=== PATIENT | female | born 1930 | race Hispanic/Latino ===

== ENCOUNTER 2017-09-10 09:54 | Outpatient (CLI) | payer MEDICARE, MEDICAID ==
[2017-09-10] MEDS ORDERED: Iopamidol 370 76% 100 ML VIAL ONE (12:58)
--- NOTE | 2017-09-10 13:16 | CT ---
CONTRAST ENHANCED CT IMAGES CHEST: DATE: 09/10/17. COMPARISON: Comparison is made to previous exam from 08/28/16. FINDINGS: Contrast-enhanced CT images of the chest are obtained. The patient has had a previous left lower lobectomy. The previously noted left lower lobe thrombus i n the pulmonary artery has resolved. The patient has an anatomic variant with a single common origin of the right coronary artery, left ci rcumflex, and left anterior descending artery all originating apparently from a calcified vessel in t he right coronary cusp. A left coronary arterial origin is not visible off of the left coronary cusp . There are extensive calcifications in the right coronary artery, LAD, and circumflex vessels. There is marked calcification over the mitral annulus. A spiculated lesion seen in the left upper lobe is not significantly changed since the previous sera rison CT. The right lung is unremarkable. No definite evidence of mediastinal masses or lesions seen. There is a cyst in the upper pole of the right kidney. An additional cyst is also seen in the right and left hepatic lobes. IMPRESSION: Stable CT appearance of the chest. POS: [facility]
== END 2017-09-10 09:55 | disposition home or self-care (01) ==
LOC: CT 09:54
PROVIDERS: ATTEND Internal Medicine Pulmonary Disease
DX: R91.1 Solitary pulmonary nodule (principal)
CPT/HCPCS: 71260; 82565

== ENCOUNTER 2017-10-03 08:17 | Emergency (ER) | payer MEDICARE, MEDICAID ==
[2017-10-03 08:44] LABS: #Eosinphils 0.2 thou/uL (0.0-0.7); #Lymphocytes 1.4 thou/uL (1.20-3.40); #Monocytes 0.4 thou/uL (0.11-0.59); #Neutrophils 5.1 thou/uL (1.40-6.50); %Basophils 0.4 % (0.0-1.0); %Eosinophils 2.2 % (0.0-10.0); %Lymphocytes 19.3 % (21.0-51.0); %Monocytes 5.9 % (0.0-10.0); %Neutrophils 72.2 % (42.0-75.0); Hemoglobin 12.6 g/dL (12.0-16.0); Mean Corpuscular HGB CONC 31.9 g/dL (32.0-36.0); Mean Corpuscular Hemoglobin 29.5 pg (27.0-31.0); Mean Corpuscular Volume 92.5 fl (81.0-99.0); Mean Platelet Volume 6.8 fL (7.4-10.4); Platelet Count 269 thou/uL (130-400); RBC Distribution Width 12.5 % (11.5-14.5); Red Blood Cell (RBC) Count 4.28 mill/uL (4.20-5.40)
[2017-10-03 08:54] LABS: INR-International Normal Ratio 1.1; PTT 32.5 SEC (22.9-36.1); Prothrombin Time 13.8 SEC (12.0-14.7)
--- NOTE | 2017-10-03 09:14 | RAD ---
PORTABLE CHEST ONE VIEW: 10/03/2017 8:32 a.m. HISTORY: Altered mental status. COMPARISON: 03/05/2017 FINDINGS: Continued blunting of the left costophrenic angle, likely due to scarring, is again seen. The heart size is stable. The aorta is tortuous. No focal areas of consolidation, pneumothoraces, or pleural effusions are seen. IMPRESSION: No radiographic evidence of acute cardiopulmonary process. POS: [facility]
[2017-10-03 09:16] LABS: ALT (SGPT) 9 U/L (8-55); AST (SGOT) 17 U/L (5-34); Albumin 3.5 g/dL (3.4-4.8); Alkaline Phosphatase 82 U/L (40-150); Anion Gap 11 mmol/L (10-20); BUN (Urea Nitrogen) 13 mg/dL (9.8-20.1); Bilirubin, Total 0.4 mg/dL (0.2-1.2); CK (CPK) 53 U/L (29-168); Calc. Creatinine Clearance 0 mL/min (70-130); Carbon Dioxide 26 mmol/L (23-31); Chloride 109 mmol/L (98-107); Estimated GFR-MDRD 82; Globulin 3.3 g/dL (2.4-3.5); Glucose 100 mg/dL (83-110); Potassium 3.8 mmol/L (3.5-5.1); Protein, Total 6.8 g/dL (6.0-8.3); Sodium 142 mmol/L (136-145)
[2017-10-03 09:21] LABS: CKMB 0.9 ng/mL (0-6.6); Troponin I Less than 0.010 ng/mL (< 0.028)
--- NOTE | 2017-10-03 09:50 | CT ---
HEAD CT NONCONTRAST: Date: 10/03/17 COMPARISON: 03/20/16. INDICATION: Headache. FINDINGS: There is left frontal lobe encephalomalacia with compensatory dilatation of the ventricular system. P arenchymal atrophy and chronic microvascular ischemic disease are present. There is no acute intracra nial hemorrhage, mass effect, or midline shift. Multifocal extra-axial calcifications are redemonstra lorenzo. There is scattered paranasal sinus opacification with redemonstration of expanded sella. IMPRESSION: 1. No acute intracranial abnormality. 2. Additional findings are detailed above. POS: [facility]
[2017-10-03] MEDS ORDERED: levETIRAcetam 500 MG TAB PO SCH (10:00)
== END 2017-10-03 10:58 | disposition home or self-care (01) ==
LOC: ERS 08:17
DX: R56.9 Unspecified convulsions (principal); E78.5 Hyperlipidemia, unspecified; I10 Essential (primary) hypertension; Z87.891 Personal history of nicotine dependence; Z86.73 Personal history of transient ischemic attack (TIA), and cerebral infarction without residual deficits; Z79.899 Other long term (current) drug therapy
CPT/HCPCS: 70450; 71045; 80053; 82550; 82553; 83880; 84146; 84484; 85025; 85610; 85730; 93005

== ENCOUNTER 2017-11-19 11:31 | Observation (INO) | payer MEDICARE, MEDICAID ==
--- NOTE | 2017-11-19 12:04 | CT ---
CT BRAIN WITHOUT CONTRAST: HISTORY: Stroke protocol. Paralysis on the right. Slurred speech. COMPARISON: CT brain 10/03/17. FINDINGS: Old left IVETTE territory infarction with encephalomalacia. There is some gliosis along the left occipi gin lobe, unchanged. No acute hemorrhage. No midline shift or mass effect. No evidence of a new acute infarction. Possible old calcified subdural hematoma. No hematoma is present on this exam with only some subdura l calcifications. Paranasal sinuses and mastoids are clear. IMPRESSION: Chronic findings. No acute intracranial abnormality. Dr. Cody at 11:46 a.m. CODE CR POS: [facility]
[2017-11-19 12:36] LABS: #Eosinphils 0.1 thou/uL (0.0-0.7); #Lymphocytes 1.3 thou/uL (1.20-3.40); #Monocytes 0.5 thou/uL (0.11-0.59); #Neutrophils 4.7 thou/uL (1.40-6.50); %Basophils 0.7 % (0.0-1.0); %Eosinophils 2.1 % (0.0-10.0); %Lymphocytes 18.9 % (21.0-51.0); %Monocytes 7.1 % (0.0-10.0); %Neutrophils 71.2 % (42.0-75.0); Hemoglobin 11.7 g/dL (12.0-16.0); Mean Corpuscular HGB CONC 33.7 g/dL (32.0-36.0); Mean Corpuscular Hemoglobin 30.8 pg (27.0-31.0); Mean Corpuscular Volume 91.5 fL (78.0-98.0); Mean Platelet Volume 6.6 fL (7.4-10.4); Platelet Count 249 thou/uL (130-400); RBC Distribution Width 12.4 % (11.5-14.5); Red Blood Cell (RBC) Count 3.79 mill/uL (4.20-5.40); White Blood Cell (WBC) Count 6.6 thou/uL (4.8-10.8)
[2017-11-19 12:44] LABS: INR-International Normal Ratio 1.1; PTT 29.8 SEC (22.9-36.1); Prothrombin Time 14.2 SEC (12.0-14.7)
[2017-11-19 12:50] LABS: ALT (SGPT) 14 U/L (8-55); AST (SGOT) 19 U/L (5-34); Albumin 3.1 g/dL (3.4-4.8); Alkaline Phosphatase 69 U/L (40-150); Anion Gap 8 mmol/L (10-20); BUN (Urea Nitrogen) 15 mg/dL (9.8-20.1); Bilirubin, Total 0.4 mg/dL (0.2-1.2); Calc. Creatinine Clearance 0 mL/min (70-130); Calcium 8.4 mg/dL (7.8-10.44); Carbon Dioxide 24 mmol/L (23-31); Chloride 110 mmol/L (98-107); Estimated GFR-MDRD 76; Glucose 108 mg/dL (83-110); Potassium 3.8 mmol/L (3.5-5.1); Protein, Total 6.1 g/dL (6.0-8.3); Sodium 138 mmol/L (136-145)
--- NOTE | 2017-11-19 13:27 | CT ---
CT ANGIOGRAM HEAD WITH CONTRAST CT ANGIOGRAM NECK WITH CONTRAST: HISTORY: Stroke alert. Paralysis. Slurred speech. COMPARISON: CT brain same day. Also, CT angiogram of the neck from 2016. FINDINGS: CT angiogram of the head and neck performed after the intravenous administration of contrast. Three- D rendering was provided. The spiculated density in the left upper lobe has not significantly increa sed in size from comparison exam. There are some mild emphysematous changes. There is normal cervical lordosis. The enlarged sella turcica is similar. The vertebral arteries are codominant. Relative to the prior examination, the proximal right interna l carotid artery stenosis has improved. Hemodynamically significant stenosis remains using NASCET cr iteria. There is approximately 40% stenosis proximal left internal carotid artery due to soft plaque. There is attenuation of the left anterior cerebral artery. Middle cerebral arteries are patent. The posterior communicating artery is patent. The basilar artery is patent. The right A1 segment has 2 moderate-grade stenoses, although is patent. IMPRESSION: 1. Two separate foci of approximately 60-75% stenoses of the right A1 segment anterior cerebral nona ry. 2. Chronic attenuation of the left anterior cerebral artery. 3. No high-grade stenosis of the middle cerebral artery segments. 4. Interval resolution of the previously noted high-grade stenosis proximal right internal carotid a rtery. 5. Less than 50% stenosis of the left proximal internal carotid artery due to soft plaque. 6. Similar appearance of the spiculated mass left upper lobe with a pleural tail. This concerning f or malignancy. Dr. Cody at 12:10 p.m. CODE CR POS: [facility]
[2017-11-19] MEDS ORDERED: ISOVUE-370 76%-LOCM 1 ML ONE (14:40)
[2017-11-19] MEDS ORDERED: Ondansetron ODT 4 MG TAB SL PRN (16:21)
[2017-11-19] MEDS ORDERED: Ondansetron HCl/PF 4 MG/2 ML Vial IVP PRN (16:21)
[2017-11-19] MEDS ORDERED: Acetaminophen 325 MG TAB PO PRN ×2 (16:21→16:38)
[2017-11-19] MEDS ORDERED: hydrALAZINE 20 MG/ML VIAL SLOW IVP PRN (16:38)
[2017-11-19 16:45] VITALS: BMI 31.1
[2017-11-19] MEDS: Sodium Chloride 0.9% 1,000 ML IV SCH (18:29)
--- NOTE | 2017-11-19 21:32 | HP ---
PRIMARY CARE PHYSICIAN: Dr. Danae Lynn. CHIEF COMPLAINT: Facial droop and numbness on the side of the face. HISTORY OF PRESENT ILLNESS: Ms. Cho is a very pleasant 87-year-old female who was brought in by her daughters due to concerns for a facial droop and difficulty with her speaking. The patient's feliz ghters act as a historian as the patient has some difficulty giving the history. She has a history o f previous cerebrovascular accident about a year and a half ago which left her with right hemiplegia. She also was recently hospitalized at our facility about a month ago after she suffered a seizure. She was at home and in her usual state of health when the family says that around 11:00, she said th at she was not really feeling good and she sat down to have breakfast and then shortly after that she said she started her face started feeling tight and it looks crooked and she said that she is feelin g stressed. They were very concerned given her previous stroke and brought her to the hospital thems elves. She typically needs some help with ambulation given her right hemiplegia and she did seem to have a little bit more difficulty than usual getting up. She was brought to the emergency room where she was seen by the emergency room physician. She had a CT scan of the brain done which was reporte d as having no acute changes and also had a CT angiogram of the [place] in which there were 2 separate foci approximately 60%-75% stenosis in the right A1 segment of the anterior cerebral arter y, but no evidence of any high-grade stenosis and there was a less than 50% stenosis of proximal left internal carotid artery and there was no mention of any aneurysm. The patient's symptoms began to i mprove during her stay in the emergency room. TPA was discussed with the patient's family, but they declined and it was difficult to determine which symptoms were old versus new. The patient says that she has not had any headaches. She did have some dizziness off and on the past couple of days, but no chest pain or shortness of breath, no PND, no orthopnea, etc. REVIEW OF SYSTEMS: All systems were reviewed and are negative except for that mentioned in the histo ry of present illness. PAST MEDICAL HISTORY: Significant for previous cerebrovascular accident with right hemiparesis, hype rtension, hyperlipidemia, recent seizure and history of a precancerous lung lesion. PAST SURGICAL HISTORY: She has had carotid endarterectomy, hysterectomy, left lower lobectomy. SOCIAL HISTORY: She is , a former smoker. She quit 20 years ago. She denies any alcohol use . She is a FULL CODE and her surrogate decision maker is her daughter, Laura Philip. ALLERGIES: MAGNESIUM which caused her to itch. FAMILY HISTORY: Significant for congestive heart failure as well as cancer. CURRENT MEDICATIONS: Include amlodipine 10 mg daily, aspirin 81 mg daily, Lipitor 40 mg daily, Plavi x 75 mg a day, Flonase nasal spray as needed, lisinopril 20 mg daily, metoprolol 25 mg daily, multivi tamin once a day, pantoprazole 40 mg daily, trazodone 50 mg at bedtime, and Keppra 500 mg twice a day . PHYSICAL EXAMINATION: GENERAL: She is alert and oriented. She appears to be in no acute distress. She is well-developed and well-nourished. VITAL SIGNS: Her blood pressure was ranging from 139-168/80, heart rate 75, respiratory rate of 17, temperature is 98.3. HEENT: Pupils are equal, round and reactive. Extraocular muscles are intact. Her sclerae are anict sebas. Throat no erythema, no exudates. NECK: No adenopathy, no bruits. LUNGS: Clear to auscultation. There is no wheezing, no rales. CARDIOVASCULAR: She has a normal S1 and S2. She did have some frequent extra heartbeats. There wer e no murmurs, no clicks, no rubs. ABDOMEN: Obese, it is soft, it is nontender, nondistended. Positive for bowel sounds. There is no rebound or guarding. EXTREMITIES: She has got lower extremity edema primarily in the right lower extremity up past the kn ee. She does have palpable dorsalis pedis pulses. NEUROLOGIC: She has got fairly flaccid paralysis in the right upper and lower extremity on the left. She has got good muscle strength: She is able to dorsiflex and plantarflex the foot. 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 SKIN AND INTEGUMENT: There were no skin changes. No rash. LABORATORY DATA: White blood cell count was 6.6, hemoglobin 11.7, hematocrit is 34.6, and platelet c ount is 249. INR is 1.1. Sodium 138, potassium 3.8, chloride is 110, CO2 is 24, BUN of 15, creatini ne 0.72, glucose is 105. IMAGING DATA: Her EKG is sinus rhythm, the rate is 70. She has a normal axis. She does have some S T segment depression laterally with some premature ventricular complexes. Also, while in the room wi th the patient, she did have quite a bit of PVCs and even some bigeminy. Again, CT scan was negative and CT angiogram as previously mentioned. ASSESSMENT AND PLAN: 1. This is a pleasant 87-year-old female who presents to the emergency room with some left facial nu mbness as well as facial droop and dysarthria. She has had a previous stroke and also recently had a seizure which the family was concerned about because they had not yet been able to see the neurologi st. She will be placed in observation for possible TIA versus acute stroke. We will obtain an MRI i n the a.m. as well as an echocardiogram. We will monitor her for signs of significant arrhythmias an d we will also consult Neurology for further evaluation. Currently, she is already on aspirin and Pl avix. We will be checking a lipid panel. 2. For seizure disorder, we will continue Keppra. This can be given IV until she has been cleared t o swallow and with regards to her blood pressure, her blood pressure is in reasonable range. We will allow some degree of permissive hypertension until which time a stroke can be ruled out. Further re commendations are as per the patient's clinical condition.
[2017-11-20 05:29] LABS: #Eosinphils 0.2 thou/uL (0.0-0.7); #Lymphocytes 1.5 thou/uL (1.20-3.40); #Monocytes 0.5 thou/uL (0.11-0.59); #Neutrophils 4.9 thou/uL (1.40-6.50); %Basophils 0.4 % (0.0-1.0); %Eosinophils 2.4 % (0.0-10.0); %Lymphocytes 20.8 % (21.0-51.0); %Monocytes 6.7 % (0.0-10.0); %Neutrophils 69.8 % (42.0-75.0); Hemoglobin 11.9 g/dL (12.0-16.0); Mean Corpuscular HGB CONC 32.1 g/dL (32.0-36.0); Mean Corpuscular Hemoglobin 29.4 pg (27.0-31.0); Mean Corpuscular Volume 91.6 fL (78.0-98.0); Mean Platelet Volume 6.8 fL (7.4-10.4); Platelet Count 263 thou/uL (130-400); RBC Distribution Width 12.4 % (11.5-14.5); Red Blood Cell (RBC) Count 4.05 mill/uL (4.20-5.40); White Blood Cell (WBC) Count 7.1 thou/uL (4.8-10.8)
[2017-11-20 06:12] LABS: Anion Gap 12 mmol/L (10-20); BUN (Urea Nitrogen) 9 mg/dL (9.8-20.1); Calc. Creatinine Clearance 62 mL/min (70-130); Calcium 8.7 mg/dL (7.8-10.44); Carbon Dioxide 22 mmol/L (23-31); Cardiac Risk 3.2 (Less than 4.5); Chloride 111 mmol/L (98-107); Cholesterol 159 mg/dl (< 200 Desired); Estimated GFR-MDRD Greater than 90; Glucose 84 mg/dL (83-110); HDL Cholesterol 49 mg/dL (>60 Neg Risk); LDL Cholesterol, Calculated 96 mg/dL; Potassium 3.8 mmol/L (3.5-5.1); Sodium 141 mmol/L (136-145); Triglycerides 70 mg/dL (Less than 150)
[2017-11-20] MEDS ORDERED: Aspirin 300 MG Suppository PR SCH (09:00)
[2017-11-20] MEDS ORDERED: Enoxaparin Sodium 40 MG/0.4 ML SYRINGE SC SCH (09:00)
[2017-11-20] MEDS ORDERED: Aspirin 325 MG TAB PO SCH (09:45)
--- NOTE | 2017-11-20 10:14 | MRI ---
MRI BRAIN NONCONTRAST: Date: 11/20/17 INDICATION: TIA. Reference made to 03/16/16 brain MRI. FINDINGS: There is ex vacuo dilatation of the ventricular system. No acute territorial infarction or midline sh ift. There is a prominent size region of left IVETTE distribution encephalomalacia with mild associated susceptibility. There is a chronic left subdural hematoma with associated foci of hemosiderin stainin g. There is moderate chronic microvascular ischemic disease. There is a partially empty sella. There is trace mastoid fluid and minimal scattered paranasal sinus mucosal thickening. [place] intraocular l enses are absent. IMPRESSION: 1. No acute territorial infarction or mass effect. 2. Prominent sized region of left IVETTE distribution encephalomalacia, superimposed upon moderate reel slitter [place]on[place] microvascular ischemic disease. 3. Small volume chronic left subdural hematoma with hemosiderin staining measuring approximately 8.0 mm in thickness. POS: [facility]
[2017-11-20] MEDS: Sodium Chloride 0.9% 1,000 ML IV SCH (10:20)
--- NOTE | 2017-11-20 13:33 | PDOC.PN ---
- Subjective Encounter Start Date: 11/20/17 Encounter Start Time: 13:31 Ms. Cho was seen today in follow-up. She does not have any complaints. She believes her symptoms have resolved. She passed her swallow evaluation. - Objective Resuscitation Status: Resuscitation Status FULL:Full Resuscitation MAR Reviewed: Yes Vital Signs & Weight: Vital Signs (12 hours) Temp Pulse Resp BP Pulse Ox 11/20/17 11:40 97.4 F L 66 16 145/68 H 96 11/20/17 07:32 97.9 F 75 20 170/80 H 95 11/20/17 04:25 97.4 F L 56 L 20 141/59 H 94 L I&O: 11/19/17 11/20/17 11/21/17 06:59 06:59 06:59 Intake Total 940 Balance 940 Result Diagrams: 11/20/17 04:01 11/20/17 04:01 Phys Exam - Physical Examination HEENT: PERRLA Respiratory: no wheezing, no rales, no rhonchi, clear to auscultation bilateral Cardiovascular: RRR, no significant murmur, no rub Gastrointestinal: soft, non-tender, positive bowel sounds Musculoskeletal: edema present + Right hemiplegia, no facial droop, CN are intact. Dx/Plan (1) Transient ischemic attack Code(s): G45.9 - TRANSIENT CEREBRAL ISCHEMIC ATTACK, UNSPECIFIED Status: Acute (2) Dyslipidemia Code(s): E78.5 - HYPERLIPIDEMIA, UNSPECIFIED Status: Chronic Comment: Continue Lipitor 40mg hs (3) HTN (hypertension) Code(s): I10 - ESSENTIAL (PRIMARY) HYPERTENSION Status: Chronic Qualifiers: Comment: Lisinopril 20mg BID, lopressor 25mg bid. (4) Seizure disorder Code(s): G40.909 - EPILEPSY, UNSP, NOT INTRACTABLE, WITHOUT STATUS EPILEPTICUS Status: Acute - Plan * Transient Ischemic Attack- stable. she is on aspirin and Plavix already, as well as a statin. Will await recommendations regarding her medications from Neurology * Seizures- continue Keppra- and await further Neurology recommendations * HTN- blood pressure was a bit elevated, but she has not been on all of her medications * Dyslipidemia- her LDL is not at goal, consider increasing dose of Lipitor.
[2017-11-20 15:43] VITALS: BP 146/71; TEMP 97.3
[2017-11-20] MEDS ORDERED: Atorvastatin Calcium 40 MG TAB PO SCH (21:00)
[2017-11-20] MEDS ORDERED: levETIRAcetam 500 MG TAB PO SCH (21:00)
[2017-11-20] MEDS ORDERED: Lisinopril 20 MG TAB PO SCH (21:00)
[2017-11-20] MEDS ORDERED: Metoprolol Tartrate 25 MG TAB PO SCH (21:00)
--- NOTE | 2017-11-20 23:17 | CON ---
DATE OF CONSULTATION: 11/20/2017 CONSULTING PHYSICIAN: Hospitalist Service IMPRESSION: 1. Transient ischemic attack with transient facial droop and slurred speech. 2. Past history of left anterior cerebral artery infarct resulting in right hemiparesis. 3. Peripheral vascular disease. 4. History of heart disease. 4. Chronic subdural hematoma. PLAN: 1. Aspirin 325 mg per day. 2. The patient will taper off of Keppra. 3. Office followup. 4. Echocardiogram reviewed. Ms. Cho is an 87-year-old woman with a past history of a stroke in February 2016. She h as residual neurologic deficits on the right. As a result of this, she had a witnessed generalized t onic clonic seizure about a month ago. She was started on Keppra by the Emergency Room. She has not had any neurologic followup. She developed left facial droop and slurred speech. Daughter reports it lasted about 15 minutes. No associated seizure activity. She came in to the hospital for evaluat ion. MRI of the brain shows a left anterior cerebral artery stroke that is old. She has fairly exte nsive small vessel ischemic changes. She has got a chronic subdural hematoma measuring about 0.8 cm on the left. No acute ischemic changes were found. Her CTA showed left ICA stenosis of 50%. There is also right A1 segment narrowing of 60%-75%. The patient was taking aspirin 81 mg every other day. PAST MEDICAL HISTORY: As listed above. ALLERGIES: Magnesium. SOCIAL HISTORY: No tobacco use. She lives with the assistance of her family. REVIEW OF SYSTEMS: The patient has no complaints of headache, nausea, dizziness or difficulty swallo wing this afternoon. PHYSICAL EXAMINATION: GENERAL: She is a somewhat overweight, elderly lady lying in bed in no distress. VITAL SIGNS: Pulse 70, respirations 16. HEENT: Pupils equal and reactive. Conjunctivae are clear. Oropharynx clear. NECK: No lymphadenopathy. EXTREMITIES: No cyanosis. NEUROLOGIC: She was alert and cooperative. She is primarily Kis[place]ili speaking. She got a right faci al droop, she also has right-sided weakness. She is nonambulatory. No abnormal movements were seen. EKG shows a sinus rhythm. SUMMARY: This is an elderly lady with transient left facial weakness, slurred speech and some dyspha bryon despite low dose aspirin. I would suggest we advance her aspirin to full dose daily. She will c ontinue on her statin, suggest we taper off Keppra due to some side effects she is experiencing. I w ill follow up with her in the office and decide whether further anticonvulsant therapy is needed.
--- NOTE | 2017-11-21 04:19 | DIS ---
DATE OF ADMISSION: 11/19/2017 DATE OF DISCHARGE: 11/20/2017 PRIMARY CARE PHYSICIAN: Danae Lynn M.D. DISCHARGE DISPOSITION: Home. PRIMARY DISCHARGE DIAGNOSES: 1. Transient ischemic attack. 2. Seizure disorder. 3. History of previous cerebrovascular accident with right hemiparesis. 4. Hypertension. 5. Hyperlipidemia. DISCHARGE MEDICATIONS: Her aspirin was changed to 325 mg daily. She has been taken off of Plavix, K eppra is to be tapered off. Continue lisinopril 20 mg twice daily, metoprolol 25 mg twice a day, vit forman D3 of 1000 units daily, Lipitor 40 mg at bedtime, and amlodipine 10 mg daily. PROCEDURES DONE DURING ADMISSION: The patient had a CT scan of the brain, which was negative for any acute intracranial process. The patient also had a CT angiogram of the [place] of [place] showing 2 s eparate foci of 60%-75% stenosis in the right A1 segment of the anterior cerebral artery. There is c hronic attenuation of the left anterior cerebral artery. No high grade stenosis in the middle cerebr al artery segments and there was a less than 50% stenosis of the left proximal carotid artery due to soft plaques. Similar appearance of the left spiculated mass in left upper lobe of the pleural tail and there was resolution of the previously noted high grade stenosis of the proximal right internal c arotid artery. The patient had an MRI of the brain which demonstrated no acute tentorial infarct or mass effect. There was prominent sized region in the left IVETTE distribution encephalomalacia superimp osed upon a moderate chronic microvascular ischemic change. There was a small volume chronic left lyle bdural hematoma with hemosiderin staining measured approximately 8 mm in thickness. The patient also had an echocardiogram with an ejection fraction estimated at 55%-60%. There was grade 1/3 diastolic dysfunction. There was severe mitral annular calcifications present and aortic valve sclerosis. CODE STATUS: FULL CODE. ALLERGIES: MAGNESIUM. HOSPITAL COURSE: Ms. Cho is a pleasant 87-year-old female that presented to the emergency room c omplaining of facial droop and numbness on the left side of her face. She was brought in for potenti al transient ischemic attack versus stroke. Her symptoms actually resolved. Workup as previously no lorenzo was negative for acute stroke. She was also seen regarding recent seizure activity in which she had been placed on Keppra. The neurologist felt it was best to taper the Keppra due to potential sandra e effects and he will see her in his office for further recommendations. Also to take her off of Patricia vix and place her on a full dose aspirin and continue her previous medications and she can have close outpatient followup.
[2017-11-21] MEDS ORDERED: Clopidogrel Bisulfate 75 MG TAB PO SCH (09:00)
[2017-11-21] MEDS ORDERED: Aspirin 81 mg Enteric Coated Tablet PO SCH (09:00)
[2017-11-21] MEDS ORDERED: Aspirin 325 MG TAB PO SCH ×2 (09:00)
[2017-11-21] MEDS ORDERED: Amlodipine 10 MG TAB PO SCH (09:00)
--- NOTE | 2017-11-24 11:29 | EKG ---
Test Reason : Blood Pressure : / mmHG Vent. Rate : 070 BPM Atrial Rate : 070 BPM P-R Int : 170 ms QRS Dur : 084 ms QT Int : 418 ms P-R-T Axes : 069 057 049 degrees QTc Int : 451 ms Sinus rhythm with occasional Premature ventricular complexes Otherwise normal ECG Confirmed by NOHELIA MACDONALD DO ([id number]), editor & co founder KARLEE VERDE ([id number]) on 11/24/2017 11:28:54 AM Referred By: Confirmed By:NOHELIA MACDONALD DO
== END 2017-11-20 19:04 | disposition home or self-care (01) ==
LOC: ERS 11:31 → 2SE 13:10
PROVIDERS: ADMIT Internal Medicine; ATTEND Internal Medicine
DX: G45.9 Transient cerebral ischemic attack, unspecified (principal); G40.909 Epilepsy, unspecified, not intractable, without status epilepticus; I10 Essential (primary) hypertension; E78.5 Hyperlipidemia, unspecified; I62.03 Nontraumatic chronic subdural hemorrhage; I73.9 Peripheral vascular disease, unspecified; Z88.8 Allergy status to other drugs, medicaments and biological substances; Z86.73 Personal history of transient ischemic attack (TIA), and cerebral infarction without residual deficits; Z79.82 Long term (current) use of aspirin; Z79.899 Other long term (current) drug therapy
CPT/HCPCS: 70450; 70496; 70498; 70551; 80048; 80053; 80061; 82962; 85025 ×2; 85610; 85730; 93005; 93306; 96361 ×2; 96365; 96366; 96372; 99291; G0378; 36415; 36416; G8996-GN-CI; G8997-GN-CH; J1650; J1953

== ENCOUNTER 2018-01-21 03:11 | Observation (INO) | payer MEDICARE, MEDICAID ==
[2018-01-21 04:10] LABS: #Basophils 0.1 thou/uL (0.0-0.2); #Eosinphils 0.2 thou/uL (0.0-0.7); #Lymphocytes 1.8 thou/uL (1.20-3.40); #Monocytes 0.6 thou/uL (0.11-0.59); #Neutrophils 4.9 thou/uL (1.40-6.50); %Basophils 0.9 % (0.0-1.0); %Eosinophils 2.8 % (0.0-10.0); %Lymphocytes 23.8 % (21.0-51.0); %Monocytes 7.3 % (0.0-10.0); %Neutrophils 65.2 % (42.0-75.0); Hemoglobin 12.3 g/dL (12.0-16.0); Mean Corpuscular HGB CONC 31.9 g/dL (32.0-36.0); Mean Corpuscular Hemoglobin 29.5 pg (27.0-31.0); Mean Corpuscular Volume 92.7 fL (78.0-98.0); Mean Platelet Volume 7.2 fL (7.4-10.4); Platelet Count 267 thou/uL (130-400); RBC Distribution Width 12.5 % (11.5-14.5); Red Blood Cell (RBC) Count 4.18 mill/uL (4.20-5.40); White Blood Cell (WBC) Count 7.5 thou/uL (4.8-10.8)
[2018-01-21 04:33] LABS: CKMB 0.9 ng/mL (0-6.6); Troponin I Less than 0.010 ng/mL (< 0.028)
[2018-01-21 04:35] LABS: ALT (SGPT) 9 U/L (8-55); AST (SGOT) 18 U/L (5-34); Albumin 3.5 g/dL (3.4-4.8); Alkaline Phosphatase 81 U/L (40-150); Anion Gap 13 mmol/L (10-20); BUN (Urea Nitrogen) 15 mg/dL (9.8-20.1); Bilirubin, Total 0.4 mg/dL (0.2-1.2); CK (CPK) 50 U/L (29-168); Calc. Creatinine Clearance 0 mL/min (70-130); Calcium 9.1 mg/dL (7.8-10.44); Carbon Dioxide 23 mmol/L (23-31); Chloride 108 mmol/L (98-107); Estimated GFR-MDRD 79; Globulin 3.2 g/dL (2.4-3.5); Glucose 111 mg/dL (83-110); Lipase 52 U/L (8-78); Magnesium 1.9 mg/dL (1.6-2.6); Potassium 3.6 mmol/L (3.5-5.1); Protein, Total 6.7 g/dL (6.0-8.3); Sodium 140 mmol/L (136-145)
[2018-01-21 04:50] LABS: PTT 35.5 SEC (22.9-36.1); Prothrombin Time 13.4 SEC (12.0-14.7)
[2018-01-21 04:51] LABS: D-Dimer Test 1.31 *mcg/mL (0.27-0.43)
[2018-01-21 04:59] LABS: Bilirubin Negative (Negative); Blood, Urine Negative (Negative); Clarity CLOUDY (Clear); Glucose, Urine (Dipstick) Negative (Negative); Leukocyte Trace (Negative); Nitrite Negative (Negative); Protein, Urine (Dipstick) 100 mg/dL (Neg-Trace); Specific Gravity, Urine 1.013 (1.002-1.036); pH, Urine 6.5 (5.0-9.0)
[2018-01-21 05:00] LABS: Bacteria/HPF 4+ HPF (None Seen); Hyaline Casts/LPF 0-3 HYALINE CAST LPF (0-3 Hyaline); Squamous Epithelial 0-3 HPF (0-3)
[2018-01-21 05:12] LABS: RBC/HPF 0-3 HPF (0-3)
[2018-01-21] MEDS ORDERED: cefTRIAXone\\ROCEPHIN 1 GM VIAL ONE (06:09)
--- NOTE | 2018-01-21 07:46 | RAD ---
CHEST 1 VIEW: INDICATION: Chest pain. COMPARISON: Prior exam dated 10/03/17. FINDINGS: There is stable mild cardiomegaly. The lungs are clear. No pleural effusion or pneumothorax is evid ent. There is stable mild elevation of the left hemidiaphragm. Osseous structures unchanged. IMPRESSION: No definite acute cardiopulmonary abnormality. POS: [facility]
--- NOTE | 2018-01-21 07:58 | CT ---
CTA OF THE CHEST UTILIZING IV CONTRAST AND 3D REFORMATTED IMAGING: INDICATION: Chest pain that woke the patient up in the night with shortness of breath and elevated D-dimer. COMPARISON: CT thorax dated 03/06/16 and 08/28/16. Comparisons are also made with a prior CT aortic dissection prot ocol dated 06/12/15. FINDINGS: No central or segmental pulmonary embolus is evident. There are prominent coronary artery thoracic aortic calcifications. There are prominent mitral annul ar calcifications. The spiculated nodule within the left upper lobe has been stable and likely relat ed to scarring. There are areas of subsegmental volume loss involving both lungs. No airspace conso lidation is grossly evident. There is a small hiatal hernia. Small hypodensities within the superior pole of the right kidney and right hepatic lobe are stable likely related to cysts. There is thoracolumbar scoliosis. There is multilevel spondylosis of the thoracic spine. No definite acute osseous abnormality is evident. IMPRESSION: 1. No central or segmental pulmonary embolus demonstrated. 2. Other stable chronic findings as above. POS: [facility]
[2018-01-21 08:34] VITALS: BMI 31.8
--- NOTE | 2018-01-21 09:34 | CT ---
PRELIMINARY REPORT/[facility]/EMERGENTY AFTER-HOURS PROCEDURE CT Head Without Intravenous Contrast EXAM DATE/TIME: 01/21/2018 3:47 AM CLINICAL HISTORY: 87 years old, female; Signs and symptoms; Altered mental status/memory loss; Confusion or disorientat ion; Patient HX: Patient woke up screaming per family. Family reports she may have had a seizure TECHNIQUE: Axial computed tomography images of the head/brain without intravenous contrast. COMPARISON: No relevant prior studies available. FINDINGS: Brain: Volume loss and chronic small vessel ischemic change. Old lacunar infarction(s). Large area of left frontal encephalomalacia/gliosis. No brain edema. No intracranial hemorrhage. No brain edema. N o intracranial hemorrhage. Ventricles: Normal. No ventriculomegaly. Bones/joints: Normal. No acute fracture. Sinuses: 2.3 cm fluid attenuation cystic lesion in the skull base posterior to the sphenoid sinus is at the base of the clivus, smoothly marginated. This is compatible with a benign lesion and could rep resent a mucous retention cyst filling part of the sphenoid sinus or a benign cystic osseous lesion. Recommend comparison with priors which are currently unavailable. Mastoid air cells: Normal as visualized. No mastoid effusion. Soft tissues: Normal. Vasculature: Chronic mild thickening and calcification of the left frontal dura. IMPRESSION: 1. No acute brain findings. 2. 2.3 cm fluid attenuation cystic lesion in the skull base posterior to the sphenoid sinus is at the base of the clivus, smoothly marginated. This is compatible with a benign lesion and could represent a mucous retention cyst filling part of the sphenoid sinus or a benign cystic osseous lesion. Recommend comparison with priors which are currently unavailable. Thank you for allowing us to participate in the care of your patient. Dictated and Authenticated by: Bear Perez MD 01/21/2018 4:11 AM Central Time ([place] & [place]) FINAL REPORT NONCONTRAST CT OF THE BRAIN: INDICATION: The patient woke up screaming from sleep with altered mental status and seizure. COMPARISON: Prior exam dated 11/19/17. FINDINGS: Old left IVETTE infarction is stable. Encephalomalacia is similar. Calcifications within the extraaxia l space overlying left frontal convexity is similar, likely reflecting sequelae of prior hematoma. N o definite acute infarct, hemorrhage, or hydrocephalus is present. IMPRESSION: 1. I agree with the preliminary report provided. No definite acute abnormality. 2. Stable widening of the sella turcica consistent with the patient's known cystic mass seen on MRI of the brain dated 03/16/16. POS: [facility]
[2018-01-21] MEDS ORDERED: Lorazepam 2 MG/ML VIAL SLOW IVP PRN (09:53)
[2018-01-21] MEDS ORDERED: Acetaminophen 325 MG TAB PO PRN (09:53)
[2018-01-21] MEDS ORDERED: Docusate 100 MG CAP PO SCH ×2 (11:30→21:00)
[2018-01-21] MEDS ORDERED: Amlodipine 10 MG TAB PO SCH (11:30)
[2018-01-21] MEDS ORDERED: Aspirin 325 MG TAB PO SCH (11:30)
[2018-01-21] MEDS ORDERED: Metoprolol Tartrate 25 MG TAB PO SCH ×2 (11:30→21:00)
[2018-01-21] MEDS ORDERED: Lisinopril 20 MG TAB PO SCH ×2 (11:30→21:00)
[2018-01-21] MEDS ORDERED: ISOVUE-370 76%-LOCM 1 ML ONE (12:19)
--- NOTE | 2018-01-21 13:21 | HP ---
REASON FOR ADMISSION: Possible seizure, questionable TIA. HISTORY OF PRESENT ILLNESS: Please note the majority of this history is obtained by talking to the 3 daughters who are at bedside as the patient does not recall what happened. Per family members the keon quintanilla started hollering around 3 in the morning. She was shaking her left upper and lower extremiti es. The patient was trying to grab onto the left side of her face in between these episodes. The wh ole thing lasted for 2-3 minutes. No complaints of cough or expectoration. No history of fever. Th e patient has prior history of hemiplegia on the same side as the shaking spells. She walks with a w alker with assistance minimally inside the house. The patient has seen Dr. Beyer, her neurologist last week. She has completely come off of her Keppra. PAST MEDICAL AND SURGICAL HISTORY: History of cerebrovascular accident with left hemiplegia. Seizur e disorder, history of bilateral carotid stenosis with right carotid endarterectomy, hypertension, dy slipidemia, hysterectomy, left lower lobectomy of the lungs. CURRENT MEDICATIONS: Norvasc 10 mg daily, atorvastatin 40 mg daily, fluticasone nasal spray p.r.n., lisinopril 20 mg daily, metoprolol 25 mg extended release daily, Protonix 40 mg daily, trazodone 50 m g p.o. at bedtime, aspirin 325 mg p.o. daily. ALLERGIES: MAGNESIUM. PERSONAL HISTORY: Does not abuse alcohol or drugs. Quit smoking more than 10 years ago. Lives with her children. FAMILY HISTORY: There is history of heart disease in her children. REVIEW OF SYSTEMS: The following complete review of systems was negative, unless otherwise mentioned in the HPI or below: Constitutional: Weight loss or gain, ability to conduct usual activities. Skin: Rash, itching. Eyes: Double vision, pain. ENT/Mouth: Nose bleeding, neck stiffness, pain, tenderness. Cardiovascular: Palpitations, dyspnea on exertion, orthopnea. Respiratory: Shortness of breath, wheezing, cough, hemoptysis, fever or night sweats. Gastrointestinal: Poor appetite, abdominal pain, heartburn, nausea, vomiting, constipation, or diarrhea. Genitourinary: Urgency, frequency, dysuria, nocturia. Musculoskeletal: Pain, swelling. Neurologic/Psychiatric: Anxiety, depression. Allergy/Immunologic: Skin rash, bleeding tendency. CODE STATUS: FULL. PHYSICAL EXAMINATION: GENERAL: The patient is an 87-year-old female who is currently not in any acute distress. VITAL SIGNS: Blood pressure 136/96, pulse is 80 per minute, respiratory rate 16 per minute, temperat ure 98.4 degrees Fahrenheit, saturating 96% on room air. NECK: Supple, no elevated JVD. HEENT: Eyes; extraocular muscles intact. Pupils reacting to light. Oral cavity; mucous membranes a re moist. No exudates or congestion. CARDIOVASCULAR: S1, S2 heard. Regular rhythm. RESPIRATORY: Air entry 1+ bilaterally. No rales or rhonchi. ABDOMEN: Soft, bowel sounds heard. No tenderness, rigidity or guarding. EXTREMITIES: No peripheral edema or calf tenderness. VASCULAR SYSTEM: Peripheral pulses 1+ bilateral, no ischemic ulcerations or gangrene. CENTRAL NERVOUS SYSTEM: The patient has chronic left hemiplegia. There is no new focal signs seen. The patient freely moves her right upper and lower extremities. There is mild drooping on the left side of her face. Gait was not tested. PSYCHIATRIC: The patient's mood is euthymic. No hallucinations or delusions. LABORATORY AND X-RAY FINDINGS: CT noncontrast brain done showed stable widening of the sella turcica consistent with patient's known cystic mass seen on MRI of the brain dated 03/16/2016, no acute intr acranial abnormality was seen or stroke. CT angio chest done showed no PE. EKG done showed sinus rh ythm at 74 beats per minute. White count 7, H&H 12 and 38, platelet count 267 with 65% neutrophils. PT, INR, PTT within normal limits. BUN 15, creatinine 0.7, serum bicarbonate 23. First set of card iac enzymes are negative. BNP 140, albumin is 3.5. TSH 4.69. Lipase is 52. UA shows trace leukocy te esterase with 4+ bacteria. CLINICAL IMPRESSION AND PLAN: The patient will be under observation on the Stroke Unit for what appe ars to be a partial seizure with patient shaking the left side of her body. This is the same side th at she has had a prior stroke with hemiplegia. We will obtain EEG. The patient was taken off Keppra due to increased somnolence. The family also does mention that she has had these episodes come on a monthly basis now. They in fact had seen Dr. Beyer last week. We will consult Dr. Beyer for Ne urology. We will place her back on a smaller dose of Keppra to see if it has any effect on her. Aga in, it is unclear if patient had muscle spasms versus seizures versus chills from her urinary tract i nfection. Again, this was seen only in the left half of her body per family. We will continue her a spirin full dose, Norvasc, lisinopril, Lopressor as before. She will be on seizure precautions and a spiration precautions as well. We will continue to closely monitor her on the Stroke Unit.
[2018-01-21] MEDS ORDERED: levETIRAcetam 500 MG TAB PO SCH ×2 (14:00→21:00)
[2018-01-21 20:38] VITALS: TEMP 98.8
[2018-01-21 20:42] VITALS: BP 160/73
[2018-01-21] MEDS ORDERED: Atorvastatin Calcium 40 MG TAB PO SCH (21:00)
[2018-01-21] MEDS ORDERED: Famotidine 20 MG TAB PO SCH (21:00)
--- NOTE | 2018-01-21 22:19 | CON ---
DATE OF CONSULTATION: 01/21/2018 REFERRING PHYSICIAN: Shayy Calhoun M.D. REASON FOR CONSULTATION: Right side jerking, possible seizure. HISTORY OF PRESENT ILLNESS: Ms. Cho is a pleasant, 87-year-old, female, who has been consulted for evaluation of right-sided jerking. History is obtained from patient's daughter, who was present at the bedside. Daughter reports that the patient had a stroke approximately 2 years ago, which resulted in her being weak on her right side. Since that stroke, she has become mostly wheelchair bound. She had undergone extensive rehab therapy; however, did not fully regain her strength and has been mostly wheelchair bound. She does help in transferring from chair to bed. She reports that she had an episode of seizure in the past, for which, she had shaking in her right side followed by generalized shaking. She was started on Keppra 500 mg b.i.d. However, Keppra was making her extremely fatigued and tired as well as sleepy, thus they had talked to Dr. Beyer in the outpatient clinic to see if she can be discontinued. She was discontinued on the Keppra prior to this admission and has not been taking any medications since that time. She states that on yesterday around 3 in the morning, she woke up with a sudden scream, and then when daughter found her, she was disoriented and was having shaking in her right side of the face, arm and leg, this concerned her, and thus, she was brought into the [facility]. Her episode lasted approximately 3 minutes and then resolved. There was no tongue biting, no loss of bowel or bladder function. PAST MEDICAL HISTORY: Significant for history of stroke, seizure disorder, bilateral carotid artery stenosis, hypertension, and dyslipidemia. PAST SURGICAL HISTORY: Significant for right carotid endarterectomy, hysterectomy, left lobectomy of the lungs. CURRENT MEDICATIONS: Please review MAR. ALLERGIES: Include MAGNESIUM. FAMILY HISTORY: Noncontributory. REVIEW OF SYSTEMS: As mentioned in the HPI, otherwise negative. PHYSICAL EXAMINATION: VITAL SIGNS: Blood pressure of 141/70, pulse of 60, temperature of 98.8, respirations of 16, O2 sats of 96% on room air. GENERAL: Well developed, well nourished, female, in no apparent distress. RESPIRATORY: Clear to auscultation bilaterally. CARDIOVASCULAR: Regular rate and rhythm. NEUROLOGIC: Mental status: The patient is awake, alert, oriented x2. Speech and language: Fluent speech. Cranial nerves: Pupils are 3 mm and reactive. Visual lobo are intact. Extraocular muscles are intact. No nystagmus. Face is symmetric. Tongue and uvula midline. Motor exam showed normal tone and bulk with a 5/5 strength in both upper and lower extremities. Sensory: Sensation is intact and symmetric. Deep tendon reflexes, 1+ reflex in both upper and lower extremities. Babinski: Plantar responses flexion bilaterally. Coordination intact to [id number] and finger tapping bilaterally. LABORATORY DATA: Labs are reviewed, which included CBC, CMP, urinalysis, which is significant for 4-6 wbc, 4+ bacteria and trace leukocyte esterase, otherwise negative. IMAGING STUDIES: CT head without contrast was reviewed, which showed old left anterior cerebral artery distribution ischemic infarct. Otherwise, unremarkable. IMPRESSION: Complex partial seizures, secondary to prior stroke. Ms. Cho is a pleasant, 87-year-old, female, who presented with the right arm and leg jerking. She has a history of left anterior cerebral artery distribution ischemic infarct, which may be contributing to some of the seizure like episode. At this time, I would recommend switching her from Keppra to Dilantin 100 mg 3 times a day. Dilantin can be switched to 300 mg at bedtime after she has been discharged to home from the hospital. No further neurological workup needed from my standpoint. Thank you for consultation. TAWNY
[2018-01-22] MEDS ORDERED: Aspirin 325 MG TAB PO SCH (09:00)
[2018-01-22] MEDS ORDERED: Amlodipine 10 MG TAB PO SCH (09:00)
[2018-01-22] MEDS ORDERED: Non-Formulary Item 1 EACH (Cholecalciferol (Vitamin D3) [Vitamin D3] 1,000 UNITS) PO SCH (09:00)
[2018-01-22] MEDS ORDERED: Enoxaparin Sodium 40 MG/0.4 ML SYRINGE SC SCH (09:00)
--- NOTE | 2018-01-22 20:37 | DIS ---
DATE OF ADMISSION: 01/21/2018 DATE OF DISCHARGE: 01/21/2018 DISCHARGE DISPOSITION: To home. PRIMARY DISCHARGE DIAGNOSES: Likely seizures. SECONDARY DISCHARGE DIAGNOSES: History of prior cerebrovascular accident with left hemiplegia, prior history of seizure disorder, bilateral carotid stenosis with history of right carotid endarterectomy , hypertension, dyslipidemia, and hysterectomy. PROCEDURES DONE DURING HOSPITALIZATION: Patient has had CT brain done, which showed no acute abnorma lity. There was stable widening of the sella turcica consistent with patient's known cystic mass see n on the MRI, dated 03/16/2016. CT angio chest done showed no evidence of PE. Blood cultures x2, no growth. Urine culture, no growth. H&H 12 and 38, platelet count 267, white count of 7.5. BUN 15, creatinine 0.7. Troponin x1 negative. CK-MB 0.9. BNP 140. TSH 4.6. Inpatient consult, Dr. Rosa Isela Campa for Neurology. DISCHARGE MEDICATIONS: Dilantin 300 mg p.o. at bedtime, MiraLax 17 grams p.o. daily, lisinopril 20 m g twice daily, Colace 100 mg daily, ciprofloxacin 500 mg p.o. twice daily for 4 days, Lipitor 40 mg p .o. at bedtime, aspirin 325 mg p.o. daily, Norvasc 10 mg p.o. daily, trazodone 50 mg p.o. at bedtime, Lopressor 25 mg twice daily, vitamin D3 of 1000 units p.o. daily. ALLERGIES: MAGNESIUM. BRIEF COURSE DURING HOSPITALIZATION: Patient initially was brought to emergency room as she had alissa ing of her left upper and lower extremities and trying to grab her face episode, which happened aroun d 3 in the morning prior to arrival. Patient was on Keppra and was intolerant toward the same due to excessive somnolence and was tapered and discontinued. In view of this history, she was placed unde r observation on the stroke unit. The patient has had EEG done and has had consultation with Dr. Elvin Carlos who was covering for her neurologist, Dr. Beyer. She has remained neurologically and hemod ynamically stable with no further episodes during her brief stay here. Per Dr. Campa's advice, she montoya s been placed on Dilantin. She needs to follow up with Dr. Beyer in 2-4 weeks and primary care brooks garces in 1 week. I have given complete updates to patient's daughter prior to discharge.
--- NOTE | 2018-01-23 15:55 | EEG ---
Referring Physician: DR. KIP CESAR EEG # [id number] TEST TYPE: ROUTINE PORTABLE INPATIENT DATE OF EEG BEING DONE: 01/21/18 REASON FOR EEG: SYNCOPE EEG DESCRIPTION: This is a 21 channel digital EEG recording. Electrodes are placed using the international 10-20 electrode placement system. The background rhythm is predominately 8-9 hertz, low amplitude Alpha rhythm. There are also 14-20 hertz,low amplitude, intermittent, diffuse Beta rhythm. There is abundant EMG and movement artifact. PHOTIC STIMULATION: Showed no effect. HYPERVENTILATION: Could not be done. There are no epileptiform discharges, sharp transients or asymmetry noted. EKG LEAD: Shows 66 beats per minute, regular rhythm. IMPRESSION: THIS IS A NORMAL EEG. Melter Supervisor Electric [employer] Furnace: SHERIN [employer] Construction Equipment Mechanic: EEG.MS TAWNY
--- NOTE | 2018-01-26 15:37 | EKG ---
Test Reason : Blood Pressure : / mmHG Vent. Rate : 074 BPM Atrial Rate : 074 BPM P-R Int : 154 ms QRS Dur : 084 ms QT Int : 402 ms P-R-T Axes : 069 034 023 degrees QTc Int : 446 ms Sinus rhythm with occasional Premature ventricular complexes Otherwise normal ECG Confirmed by SABINA GUADALUPE ([id number]), web content editor DAYDAY CAROLINA ([id number]) on 01/26/2018 3:37:04 PM Referred By: Confirmed By:SABINA GUADALUPE
== END 2018-01-21 20:57 | disposition home or self-care (01) ==
LOC: ERS 03:11 → 2SE 05:44
PROVIDERS: ADMIT Internal Medicine; ATTEND Internal Medicine
DX: I69.354 Hemiplegia and hemiparesis following cerebral infarction affecting left non-dominant side (principal); G40.209 Localization-related (focal) (partial) symptomatic epilepsy and epileptic syndromes with complex partial seizures, not intractable, without status epilepticus; I10 Essential (primary) hypertension; E78.5 Hyperlipidemia, unspecified; Z87.891 Personal history of nicotine dependence; Z79.82 Long term (current) use of aspirin; Z79.899 Other long term (current) drug therapy; Z88.8 Allergy status to other drugs, medicaments and biological substances; Z90.2 Acquired absence of lung [part of]
CPT/HCPCS: 51701; 70450; 71045; 71275; 82550; 82553; 82962; 83690; 83735; 83880; 84484; 85379; 85610; 85730; 87040; 87077; 87086; 93005; 95816; 95819; 96365; 97116; 97139; 99285; G0378; G8978; G8979; 36415; 36416; 80053; 81003; 81015; 84443; 85025; A4216; A4353; J0696

== ENCOUNTER 2018-05-24 10:41 | Emergency (ER) | payer MEDICARE, MEDICAID ==
[~2018-05-24 10:41] MED LIST: ISOVUE-370 76%-LOCM 1 ML ONE
[2018-05-24 14:38] LABS: #Eosinphils 0.1 thou/uL (0.0-0.7); #Lymphocytes 1.1 thou/uL (1.20-3.40); #Monocytes 0.5 thou/uL (0.11-0.59); #Neutrophils 13.7 thou/uL (1.40-6.50); %Basophils 0.2 % (0.0-1.0); %Eosinophils 0.4 % (0.0-10.0); %Lymphocytes 7.3 % (21.0-51.0); %Monocytes 3.1 % (0.0-10.0); Hemoglobin 12.8 g/dL (12.0-16.0); Mean Corpuscular HGB CONC 30.6 g/dL (32.0-36.0); Mean Corpuscular Hemoglobin 28.4 pg (27.0-31.0); Mean Corpuscular Volume 92.9 fL (78.0-98.0); Platelet Count 440 thou/uL (130-400); White Blood Cell (WBC) Count 15.4 thou/uL (4.8-10.8)
[2018-05-24 14:59] LABS: ALT (SGPT) 19 U/L (8-55); AST (SGOT) 18 U/L (5-34); Albumin 3.1 g/dL (3.4-4.8); Alkaline Phosphatase 74 U/L (40-150); Anion Gap 9 mmol/L (10-20); BUN (Urea Nitrogen) 24 mg/dL (9.8-20.1); Bilirubin, Total 0.2 mg/dL (0.2-1.2); Calc. Creatinine Clearance 0 mL/min (70-130); Calcium 8.6 mg/dL (7.8-10.44); Carbon Dioxide 28 mmol/L (23-31); Chloride 107 mmol/L (98-107); Estimated GFR-MDRD 62; Globulin 3.2 g/dL (2.4-3.5); Glucose 181 mg/dL (83-110); Potassium 4.3 mmol/L (3.5-5.1); Protein, Total 6.3 g/dL (6.0-8.3); Sodium 140 mmol/L (136-145)
--- NOTE | 2018-05-24 17:01 | CT ---
CT OF NECK WITH CONTRAST: 05/24/18 HISTORY: 87-year-old female with dysphagia. FINDINGS: There is diffuse enlargement of the lingual tonsil, right laterally, left laterally, and centrally. T his is asymmetrically slightly larger on the right side. The appearance is that of hyperplasia. The p alatine tonsils are not well visualized. They are either atrophic or surgically absent. The submandib ular glands are bilaterally symmetrically mildly enlarged, and has increased enhancement diffusely, c ompared to the lower attenuation bilateral parotid glands. There is mild intraglandular submandibular ductal ectasia, but no evidence of dilation of Kitt[place]'s ducts or Stensen's ducts. No sialolith iden tified. The vallecula is clear. No abnormal thickening of the epiglottis. Mild asymmetrical thickening of the right hypopharynx, slightly indenting the right posterior aspect of the supraglottic larynx, nonspec ific. Effacement of bilateral piriform sinuses, nonspecific. The right true and false vocal cords are slightly higher in density and slightly thicker than the left. This is nonspecific. There is no narr owing of the airway, including the entire trachea, oropharynx, and nasopharynx. There are no bulky osteophytes from the cervical bodies encroaching upon the posterior pharyngeal wal l or larynx, or esophagus. The perivertebral, retropharyngeal, parapharyngeal, sublingual, measurement coordinator , and posterior cervical, spaces, are essentially normal. Atherosclerotic calcification at left inter nal carotid artery origin causing at least mild stenosis. The sella turcica is very large, but has sm ooth margins without bone destruction and is filled with CSF attenuation. No destructive osseous lesi on involving the mandible or maxilla. The maxillary sinuses and ethmoid air cells are grossly clear. In the posterior aspect of the left upper lobe, there is a spiculated noncalcified pulmonary lesion t hat is difficult to measure because of its very irregular shape. It is approximately 1.5 x 1 x 0.5 cm . It has not significantly changed in size compared to prior chest CTs of 09/10/17, 08/28/16, 07/14/15, a nd 04/16/15. IMPRESSION: 1. Nonspecific mild asymmetry of the right side of the larynx. 2. Bilaterally symmetrically increased enhancement and enlargement of the submandibular glands, with intraglandular ductal ectasia. Recommend clinical correlation for possibility of mild, symmetric al bilateral submandibular sialadenitis. 3. Partially empty sella. 4. No other major pathology of the neck. No explanation for the dysphagia identified. POS: KIM
== END 2018-05-24 16:30 | disposition home or self-care (01) ==
LOC: ERS 10:41
DX: J02.9 Acute pharyngitis, unspecified (principal); R51 Headache; E78.5 Hyperlipidemia, unspecified; I10 Essential (primary) hypertension; Z86.73 Personal history of transient ischemic attack (TIA), and cerebral infarction without residual deficits; Z87.891 Personal history of nicotine dependence; Z79.82 Long term (current) use of aspirin; Z79.899 Other long term (current) drug therapy
CPT/HCPCS: 36415; 70491; 80053; 84484; 85025; 93005

== ENCOUNTER 2018-11-23 18:13 | Inpatient (IN) | payer MEDICARE, MEDICAID ==
--- NOTE | 2018-11-23 18:30 | CT ---
CT head noncontrast HISTORY: Altered mental status. COMPARISON: 01/21/2018. FINDINGS: There is no evidence of acute intracranial hemorrhage or infarct. Old left anterior cerebra l artery infarct. Dystrophic calcification over the left frontal dura is again demonstrated. Chronic ischemic small vessel disease and mild diffuse atrophy. There is no mass effect or shift of m idline structures. Sella turcica remains enlarged. IMPRESSION: Chronic-type findings are stable. No acute intracranial abnormalities are demonstrated. Findings were called to Dr. Hutson in the emergency department at 1824 hours. Code CR.
[2018-11-23 18:34] LABS: #Eosinphils 0.2 thou/uL (0.0-0.7); #Lymphocytes 2.1 thou/uL (1.20-3.40); #Monocytes 0.8 thou/uL (0.11-0.59); #Neutrophils 5.1 thou/uL (1.40-6.50); %Basophils 0.5 % (0.0-1.0); %Eosinophils 2.5 % (0.0-10.0); %Lymphocytes 25.8 % (21.0-51.0); %Monocytes 9.3 % (0.0-10.0); Hemoglobin 12.3 g/dL (12.0-16.0); Mean Corpuscular HGB CONC 32.8 g/dL (32.0-36.0); Mean Corpuscular Hemoglobin 29.9 pg (27.0-31.0); Mean Corpuscular Volume 91.2 fL (78.0-98.0); Mean Platelet Volume 7.5 fL (7.4-10.4); Platelet Count 277 thou/uL (130-400); RBC Distribution Width 12.6 % (11.5-14.5); Red Blood Cell (RBC) Count 4.13 mill/uL (4.20-5.40); White Blood Cell (WBC) Count 8.3 thou/uL (4.8-10.8)
[2018-11-23 18:39] LABS: INR-International Normal Ratio 1.1; PTT 31.8 SEC (22.9-36.1); Prothrombin Time 13.7 SEC (12.0-14.7)
--- NOTE | 2018-11-23 18:50 | CT ---
CT arteriogram neck with IV contrast and 3-D imaging CT arteriogram head with IV contrast and 3-D imaging CT brain with IV contrast HISTORY: CVA. COMPARISON: 11/19/2017. FINDINGS: Normal branching of the great vessels at the aortic arch with arterial calcification. Subcl mina arteries are patent. Good flow into each carotid and vertebral system. Right carotid bifurcation is patent. There is atherosclerosis with approximately 50% narrowing at the proximal left ICA. Good flow into each intracranial system. The right A1 segment of the anterior cerebral artery remains hypoplastic (favored over stenotic). No filling defects are apparent. Good flow into each cer ebral system with the exception of the left anterior cerebral artery where an old infarct is similar in appearance to the previous exam. No abnormally enhancing lesions. Inferior most images show the area of spiculated scarring at the posterior aspect of the left upper l obe lung to be similar in appearance to the previous study. IMPRESSION: Mild stenosis of the left internal carotid artery is stable. No acute vascular abnormalit ies are demonstrated. Atherosclerosis. Chronic-type findings are stable. Findings were called to Dr. Hutson in the emergency department at 1844 hours. Code CR.
--- NOTE | 2018-11-23 18:52 | RAD ---
Chest one view HISTORY: CVA. COMPARISON: 01/21/2018. FINDINGS: Cardiac silhouette is magnified and upper limits of normal. Mediastinum is midline with aor tic calcification. Pulmonary vasculature within normal limits. No lobar consolidation or evidence of pneumothorax. monitoring specialist leads overlie the chest. IMPRESSION: Atherosclerosis. No active cardiopulmonary abnormalities are otherwise demonstrated.
[2018-11-23 19:04] LABS: ALT (SGPT) 9 U/L (8-55); AST (SGOT) 16 U/L (5-34); Albumin 3.6 g/dL (3.4-4.8); Alkaline Phosphatase 89 U/L (40-150); Anion Gap 11 mmol/L (10-20); BUN (Urea Nitrogen) 19 mg/dL (9.8-20.1); Bilirubin, Total 0.3 mg/dL (0.2-1.2); CK (CPK) 60 U/L (29-168); Calc. Creatinine Clearance 0 mL/min (70-130); Calcium 9.1 mg/dL (7.8-10.44); Carbon Dioxide 25 mmol/L (23-31); Chloride 107 mmol/L (98-107); Estimated GFR-MDRD 66; Globulin 3.5 g/dL (2.4-3.5); Glucose 102 mg/dL (83-110); Potassium 4.5 mmol/L (3.5-5.1); Protein, Total 7.1 g/dL (6.0-8.3); Sodium 138 mmol/L (136-145)
[2018-11-23] MEDS ORDERED: Aspirin Chewable 81 MG TAB ONE (19:22)
[2018-11-23 20:07] LABS: Bacteria/HPF 2+ HPF (None Seen); Bilirubin Negative (Negative); Blood, Urine Negative (Negative); Clarity Clear (Clear); Glucose, Urine (Dipstick) Normal (Negative); Leukocyte 250 Leu/uL (Negative); Mucous/LPF Rare LPF (<2+); Nitrite Negative (Negative); Protein, Urine (Dipstick) Negative (Neg-Trace); RBC/HPF 0-3 HPF (0-3); Squamous Epithelial 0-3 HPF (0-3); Urobilinogen Normal mg/dL (Less than 2)
[2018-11-23] MEDS ORDERED: Acetaminophen 650 MG Suppository PR PRN (21:53)
[2018-11-23] MEDS ORDERED: Ondansetron ODT 4 MG TAB PO PRN (21:53)
[2018-11-23] MEDS ORDERED: Acetaminophen 325 MG TAB PO PRN (21:53)
[2018-11-23] MEDS ORDERED: Ondansetron PF 4 MG/2 ML Vial IVP PRN (21:53)
[2018-11-23 22:05] VITALS: BMI 25.6
--- NOTE | 2018-11-23 23:37 | HP ---
CHIEF COMPLAINT: Worsening dysarthria and facial numbness. HISTORY OF PRESENT ILLNESS: Ms. Cho is an 88-year-old woman, who presents due to family noticing changes with her speech. She had a previous CVA with right-sided deficits that intermittently worsens and today they have noticed a significant decline in her ability to communicate. Yesterday, she was able to speak and hold a conversation with her family and today she isn't able to communicate clearly. She is able to answer yes or no and otherwise appears to want to communicate, but is stuttering and having difficulty finding her words. She continues to grab onto her chin, and when asked if she had numbness, she stated yes. With regard to her right-sided weakness, the patient is usually able to stand with assistance in order to transfer. She was noted to have worsening weakness in the right upper extremity. Unable to obtain a good history from the patient in terms of the review of systems, but she does state no when asked if she has a headache or any pain at this present time. Family states her appetite has been normal. She has not had any recent fevers. No shortness of breath. The patient denies any chest pain. Family reports she is moving her bowels as normal. She is incontinent of urine at baseline. No nausea or vomiting. Of note, the patient last had an echo on November 20, 2018 showing an EF of 55% to 60% with grade 1/3 diastolic dysfunction and a moderately dilated left atrium. Severe mitral annular calcification present. Mild mitral regurgitation. AV sclerosis, but opens well. Mild TR and mild MT. PAST MEDICAL HISTORY: 1. Hyperlipidemia. 2. Hypertension. 3. Previous CVA with residual right-sided deficits. 4. Seizures. 5. History of bilateral carotid stenosis. PAST SURGICAL HISTORY: 1. Partial left lower lobectomy. 2. Hysterectomy. 3. Right carotid endarterectomy. 4. Cardiac stents placed in the past. 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 She does not smoke. No alcohol use or illicit drug use. She did smoke previously greater than 10 years ago. ALLERGIES: MAGNESIUM CAUSES ITCHING. CURRENT MEDICATIONS: 1. Aspirin. 2. Amlodipine. 3. Atorvastatin. 4. Lisinopril. 5. Metoprolol tartrate. 6. Keppra. 7. Sertraline. PHYSICAL EXAMINATION: GENERAL: The patient appears well developed, well nourished. She is in no acute distress. Throughout her assessment, she appears to be frustrated at times due to difficulty communicating. VITAL SIGNS: Temperature 98.2, pulse 64, respirations 16, O2 saturation 96% on room air, blood pressure 125/76. HEENT: Normocephalic and atraumatic. Pupils are equal, round, and reactive to light. Extraocular movements intact. Oropharynx is clear. NECK: Supple. Full range of motion. LUNGS: Clear to auscultation bilaterally without any wheezes, rales, or rhonchi. CARDIAC: Regular rate and rhythm. ABDOMEN: Soft, nontender, nondistended. Normoactive bowel sounds present. EXTREMITIES: Notable for lower extremity swelling. No edema. Per family, she is at baseline. NEUROLOGIC: The patient is alert, able to follow commands. Notable dysarthria. Power 0/5 in right upper extremity and right lower extremity. Left upper and lower extremities with 5/5 strength. Difficulty assessing sensation. The patient states yes when asked if she has numbness to her chin on both the left and right side. Other areas, she states no when asked if she has numbness. LABORATORY DATA: Showed normal full blood count. Electrolytes unremarkable. BUN 19, creatinine 0.82, GFR 66. Renal function seems to be at baseline. LFTs unremarkable. Troponin negative. CK 62. IMAGING: CT brain showed chronic findings, but no acute intracranial abnormalities. There is an old left anterior cerebral artery infarct with dystrophic calcification over the left frontal dura. Chronic ischemic small-vessel disease and mild diffuse atrophy noted. Sella turcica remains enlarged. CT angiogram of the head and neck showed mild stenosis of the left ICA, which is stable. No acute vascular abnormalities noted. Atherosclerosis present. There is approximately 50% narrowing at the proximal left ICA with good flow. Chest x-ray, atherosclerosis with no active cardiopulmonary abnormalities. IMPRESSION AND PLAN: Ms. Cho is a pleasant 88-year-old woman, who is brought by her family due to worsening dysarthria and right-sided weakness. She is being referred for management of the followin. Cerebrovascular accident rule out. The patient has undergone extensive imaging, which showed no acute findings. We will add an MRI of the brain. Lipid panel ordered. We will also add urinalysis and urine culture to assess for any underlying infection such as UTI. Neuro consult requested. 2. Hypertension. We will resume home medications and monitor blood pressure. 3. Hyperlipidemia. We will resume home medications once verified. 4. History of seizures. We will resume Keppra and monitor closely. 5. Gastrointestinal prophylaxis. 6. Deep venous thrombosis prophylaxis with mechanical SCDs. 7. Code status full. Her surrogate decision maker is her daughter, Laura Philip and her other daughter, Naomi Wang. The patient's case will be discussed with attending for further recommendations. Job ID: [id number]
[2018-11-24 04:42] LABS: #Basophils 0.1 thou/uL (0.0-0.2); #Eosinphils 0.2 thou/uL (0.0-0.7); #Monocytes 0.6 thou/uL (0.11-0.59); #Neutrophils 5.1 thou/uL (1.40-6.50); %Basophils 0.7 % (0.0-1.0); %Eosinophils 2.7 % (0.0-10.0); %Lymphocytes 24.9 % (21.0-51.0); %Monocytes 7.8 % (0.0-10.0); Hemoglobin 11.8 g/dL (12.0-16.0); Mean Corpuscular HGB CONC 32.8 g/dL (32.0-36.0); Mean Corpuscular Hemoglobin 29.8 pg (27.0-31.0); Mean Platelet Volume 7.3 fL (7.4-10.4); Platelet Count 248 thou/uL (130-400); RBC Distribution Width 12.9 % (11.5-14.5); Red Blood Cell (RBC) Count 3.95 mill/uL (4.20-5.40); White Blood Cell (WBC) Count 7.9 thou/uL (4.8-10.8)
[2018-11-24 05:03] LABS: Anion Gap 10 mmol/L (10-20); BUN (Urea Nitrogen) 13 mg/dL (9.8-20.1); Calc. Creatinine Clearance 61 mL/min (70-130); Calcium 8.8 mg/dL (7.8-10.44); Carbon Dioxide 25 mmol/L (23-31); Chloride 109 mmol/L (98-107); Cholesterol 131 mg/dl (< 200 Desired); Estimated GFR-MDRD 86; Glucose 99 mg/dL (83-110); HDL Cholesterol 44 mg/dL (>60 Neg Risk); LDL Cholesterol, Calculated 72 mg/dL; Sodium 140 mmol/L (136-145); Triglycerides 74 mg/dL (Less than 150)
[2018-11-24] MEDS ORDERED: Aspirin 81 mg Enteric Coated Tablet PO SCH (09:00)
[2018-11-24] MEDS: Famotidine/PF 20 mg/2ml Vial SLOW IVP SCH (10:17)
[2018-11-24] MEDS: levETIRAcetam 500 MG TAB PO SCH ×2 (14:33→21:34)
[2018-11-24] MEDS: Amlodipine 10 MG TAB PO SCH (14:33)
[2018-11-24] MEDS: Lisinopril 20 MG TAB PO SCH (14:35)
[2018-11-24] MEDS: Metoprolol Tartrate 25 MG TAB PO SCH ×2 (14:36→21:34)
--- NOTE | 2018-11-24 15:53 | PDOC.HOSPP ---
- Subjective Subjective: Ms. Cho was seen at approximately 11:15 today for follow-up of difficulty with word finding. She does not have any complaints, but she answers with primarily one word, and repeats this continuously. He daughter who are at bedside feel she is actually better. - Objective Vital Signs & Weight: Vital Signs (12 hours) Temp Pulse Pulse Resp BP BP BP 11/24/18 14:35 148/65 H 11/24/18 14:33 70 148/65 H 11/24/18 11:32 97.9 F 70 18 11/24/18 09:19 62 148/65 H 140/65 11/24/18 08:00 97.8 F 63 20 BP Pulse Ox 11/24/18 14:35 11/24/18 14:33 11/24/18 11:32 148/65 H 93 L 11/24/18 09:19 11/24/18 08:00 126/68 95 Weight Weight 144 lb 11.2 oz Result Diagrams: 11/24/18 04:31 11/24/18 04:31 Additional Labs: Accuchecks 11/23/18 18:20 POC Glucose 92 ROS - Review of Systems All systems: All other ROS were reviewed and found negative. - Medication Medications: Active Medications Generic Name Dose Route Start Last Admin Trade Name Marcos PRN Reason Stop Dose Admin Amlodipine Besylate 10 mg 11/24/18 09:00 11/24/18 14:33 Norvasc PO 10 mg DAILY ELIF Administration Aspirin 81 mg 11/24/18 09:00 11/24/18 14:35 Ecotrin PO 81 mg DAILY ELIF Administration Famotidine 20 mg 11/24/18 09:00 11/24/18 10:17 Pepcid SLOW IVP 20 mg DAILY ELIF Administration Levetiracetam 250 mg 11/24/18 09:00 11/24/18 14:33 Keppra PO 250 mg BID ELIF Administration Lisinopril 20 mg 11/24/18 09:00 11/24/18 14:35 Zestril PO 20 mg DAILY ELIF Administration Metoprolol Tartrate 25 mg 11/24/18 09:00 11/24/18 14:36 Lopressor PO 25 mg BID ELIF Administration Sertraline HCl 25 mg 11/24/18 09:00 11/24/18 14:36 Zoloft PO 25 mg DAILY ELIF Administration - Exam Eye: PERRL, anicteric sclera Heart: RRR, no murmur, no gallops, no rubs Respiratory: CTAB, no wheezes, no rales, no ronchi, normal chest expansion, no tachypnea, normal percussion Gastrointestinal: soft, non-tender, non-distended, normal bowel sounds Extremities: no cyanosis, no clubbing, no edema Neurological: hemiplegia (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), speech deficit ( mild aphasia) Psychiatric: normal affect, normal behavior, A&O x 3 Hosp A/P (1) Aphasia Code(s): R47.01 - APHASIA Status: Acute (2) Cerebrovascular accident Code(s): I63.9 - CEREBRAL INFARCTION, UNSPECIFIED Status: Acute Qualifiers: Precerebral and cerebral artery: anterior cerebral artery Laterality of affected vessel: left (3) Seizure disorder Code(s): G40.909 - EPILEPSY, UNSP, NOT INTRACTABLE, WITHOUT STATUS EPILEPTICUS Status: Acute (4) HTN (hypertension) Code(s): I10 - ESSENTIAL (PRIMARY) HYPERTENSION Status: Chronic Qualifiers: - Plan * Aphasia- improving according to family- TIA vs. CVA- awaiting MRI * Also await Neurology evaluation * HTN- blood pressure is stable- continue her home medications * Seizure disorder- continue Mae
--- NOTE | 2018-11-24 16:15 | MRI ---
MRI brain noncontrast HISTORY: CVA. Weakness. COMPARISON: 11/20/2017. FINDINGS: At the left temporoparietal level, a wedge-shaped area of restricted diffusion involves the peripheral cortex with associated defect on the ADC mapping images. No acute intracranial hemorrhage is evident. Similar defect on the FLAIR images. 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 Cortical atrophy and other chronic-type findings are stable. IMPRESSION: New area of acute cortical infarct at the left temporoparietal level. Moderate size perip heral branch distribution. Old infarcts and other chronic-type findings are stable.
[2018-11-24] MEDS ORDERED: Atorvastatin Calcium 40 MG TAB PO SCH (21:00)
[2018-11-25] MEDS ORDERED: cefTRIAXone\\ROCEPHIN 1 GM in Sodium Chloride 0.9% 100 ML IVPB SCH (08:00)
[2018-11-25] MEDS ORDERED: Aspirin 325 mg Enteric Coated Tablet PO SCH (09:00)
[2018-11-25] MEDS: Amlodipine 10 MG TAB PO SCH (10:10)
[2018-11-25] MEDS: Metoprolol Tartrate 25 MG TAB PO SCH (10:10)
[2018-11-25] MEDS: Lisinopril 20 MG TAB PO SCH (10:10)
[2018-11-25] MEDS: levETIRAcetam 500 MG TAB PO SCH (10:12)
[2018-11-25] MEDS: Famotidine/PF 20 mg/2ml Vial SLOW IVP SCH (10:15)
--- NOTE | 2018-11-25 14:10 | PDOC.HOSPP ---
- Subjective Subjective: Ms. Cho was seen today at approximately 12:00pm today in follow-up of acute CVA. She is answering questions with more complete sentences. Her daughter notes some improvement as well. - Objective Vital Signs & Weight: Vital Signs (12 hours) Temp Pulse Pulse Pulse Resp BP BP 11/25/18 11:55 98.3 F 59 L 16 11/25/18 10:10 61 142/65 H 11/25/18 10:05 11/25/18 09:22 61 137/66 11/25/18 08:40 62 11/25/18 07:39 98.5 F 61 16 11/25/18 04:00 97.8 F 60 16 BP BP Pulse Ox 11/25/18 11:55 126/65 94 L 11/25/18 10:10 11/25/18 10:05 96 11/25/18 09:22 11/25/18 08:40 122/61 11/25/18 07:39 142/65 H 96 11/25/18 04:00 137/68 94 L Weight Admit Weight 144 lb 11.2 oz Weight 144 lb 11.2 oz I&O: 11/24/18 11/25/18 11/26/18 06:59 06:59 06:59 Intake Total 120 Output Total 300 Balance -180 Result Diagrams: 11/24/18 04:31 11/24/18 04:31 ROS - Review of Systems All systems: All other ROS were reviewed and found negative. - Medication Medications: Active Medications Generic Name Dose Route Start Last Admin Trade Name Freq PRN Reason Stop Dose Admin Amlodipine Besylate 10 mg 11/24/18 09:00 11/25/18 10:10 Norvasc PO 10 mg DAILY ELIF Administration Aspirin 325 mg 11/25/18 09:00 11/25/18 10:09 Ecotrin PO 325 mg DAILY ELIF Administration Atorvastatin Calcium 40 mg 11/24/18 21:00 11/24/18 21:34 Lipitor PO 40 mg HS ELIF Administration Famotidine 20 mg 11/24/18 09:00 11/25/18 10:15 Pepcid SLOW IVP 20 mg DAILY ELIF Administration Ceftriaxone Sodium 1 gm/ 100 mls @ 200 mls/hr 11/25/18 08:00 11/25/18 10:23 Sodium Chloride IVPB 100 mls 0800 ELIF Administration Levetiracetam 250 mg 11/24/18 09:00 11/25/18 10:12 Keppra PO 250 mg BID ELIF Administration Lisinopril 20 mg 11/24/18 09:00 11/25/18 10:10 Zestril PO 20 mg DAILY ELIF Administration Metoprolol Tartrate 25 mg 11/24/18 09:00 11/25/18 10:10 Lopressor PO 25 mg BID ELIF Administration Sertraline HCl 25 mg 11/24/18 09:00 11/25/18 10:11 Zoloft PO 25 mg DAILY ELIF Administration - Exam NAD, awake alert Eye: PERRL, anicteric sclera Heart: RRR, no murmur, no gallops, no rubs, normal peripheral pulses Respiratory: CTAB, no wheezes, no rales, no ronchi, normal chest expansion Gastrointestinal: soft, non-tender, non-distended, normal bowel sounds Extremities: no edema Neurological: speech deficit (+ expressive aphasia, and right sided weakness) Hosp A/P (1) Aphasia Code(s): R47.01 - APHASIA Status: Acute (2) Cerebrovascular accident Code(s): I63.9 - CEREBRAL INFARCTION, UNSPECIFIED Status: Acute Qualifiers: Precerebral and cerebral artery: anterior cerebral artery Laterality of affected vessel: left (3) Seizure disorder Code(s): G40.909 - EPILEPSY, UNSP, NOT INTRACTABLE, WITHOUT STATUS EPILEPTICUS Status: Acute (4) HTN (hypertension) Code(s): I10 - ESSENTIAL (PRIMARY) HYPERTENSION Status: Chronic Qualifiers: - Plan * Acute CVA- in the Left temporoparietal region * Will continue aspirin full dose for now pending further recommendations from Neurology * HTN- blood pressure is stable * Anticipate discharge home later today
[2018-11-25 15:51] VITALS: BP 141/82; TEMP 98.1
[2018-11-25] MEDS ORDERED: Clopidogrel Bisulfate 75 MG TAB PO SCH (17:00)
[2018-11-26] MEDS ORDERED: Aspirin Chewable 81 MG TAB PO SCH (09:00)
[2018-11-26] MEDS ORDERED: Clopidogrel Bisulfate 75 MG TAB PO SCH (09:00)
--- NOTE | 2018-11-26 15:29 | DIS ---
DATE OF ADMISSION: 11/24/2018 DATE OF DISCHARGE: 11/25/2018 PRIMARY CARE PHYSICIAN: Zev Amaro MD DISCHARGE DISPOSITION: Home. PRIMARY DISCHARGE DIAGNOSES: 1. Acute cerebrovascular accident. 2. Previous cerebrovascular accident. 3. Hypertension. 4. Hyperlipidemia. 5. History of seizure. DISCHARGE MEDICATIONS: Include; 1. Plavix 75 mg daily. 2. Lipitor 10 mg daily. 3. Amlodipine 10 mg daily. 4. Sertraline 25 mg daily. 5. Lopressor 25 mg twice a day. 6. Lisinopril 20 mg daily. 7. Keppra 250 mg twice daily. 8. Aspirin 81 mg a day. PROCEDURES DONE DURING THE ADMISSION: The patient had a CT scan of the brain, which was negative for any acute intracranial abnormalities. The patient also had a CT angiogram of the neck and beaver of [place], showing some mild stenosis in the left internal carotid artery, which was stable. The patient also had an MRI of the brain in which there was a new area of acute cortical infarct in the left temporoparietal level. CODE STATUS: Full code. ALLERGIES: TO MAGNESIUM. HOSPITAL COURSE: Ms. Cho is a pleasant 88-year-old female who presented to the emergency room with complaints of word finding difficulties as well as some mild increased weakening of the right side. She has had a previous stroke with right-sided weakness. She was evaluated in the ER, had a CT scan of the brain done which was negative. It was originally thought that this could be a transient ischemic attack. However, MRI showed that this was a new cortical infarct. She had been on aspirin previously and the decision was made by her neurologist to add Plavix to her regimen. By the time she was seen the following day, her speech had improved quite dramatically to the point where she was able to talk in almost complete sentences. Her daughters had noticed that her weakness had improved and she was subsequently discharged home in stable condition and to follow up with her neurologist in 1 to 2 weeks. Job ID: [id number]
--- NOTE | 2018-11-27 15:41 | EKG ---
Test Reason : LEVEL 1 STROKE Blood Pressure : / mmHG Vent. Rate : 066 BPM Atrial Rate : 066 BPM P-R Int : 168 ms QRS Dur : 082 ms QT Int : 414 ms P-R-T Axes : 084 055 046 degrees QTc Int : 434 ms Sinus rhythm with occasional Premature ventricular complexes Otherwise normal ECG Confirmed by SHAHRAM TREADWELL, VENITA Carpenter ([id number]), legal editor DAYDAY [place] ([id number]) on 11/27/2018 3:40:48 PM Referred By: Confirmed By:VENITA OMALLEY MD
== END 2018-11-25 18:41 | disposition home or self-care (01) | DRG 65 ==
LOC: ERS 18:13 → 2SE 21:10 → OBSVTOIN 11-24 17:21
PROVIDERS: ADMIT Internal Medicine; ATTEND Internal Medicine
DX: I63.522 Cerebral infarction due to unspecified occlusion or stenosis of left anterior cerebral artery (principal); I69.351 Hemiplegia and hemiparesis following cerebral infarction affecting right dominant side; E78.5 Hyperlipidemia, unspecified; I10 Essential (primary) hypertension; G40.909 Epilepsy, unspecified, not intractable, without status epilepticus; R47.01 Aphasia; R29.719 NIHSS score 19; I65.23 Occlusion and stenosis of bilateral carotid arteries; Z90.49 Acquired absence of other specified parts of digestive tract; Z95.5 Presence of coronary angioplasty implant and graft; Z79.82 Long term (current) use of aspirin; Z79.899 Other long term (current) drug therapy
CPT/HCPCS: 36415; 36416; 51701; 70450; 70496; 70498; 70551; 71045; 80048; 80053; 80061; 81003; 81015; 82550; 84484; 85025; 85610; 85730; 87077; 87086; 87186; 93005; J0696; J3490; Q9966; S0028